=== PATIENT | female | born 2000 | race Hispanic/Latino ===

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

== ENCOUNTER 2021-08-20 21:39 | Emergency (ER) | payer SELFPAY ==
[2021-08-20] MEDS ORDERED: ONDANSETRON 4 MG/2 ML VIAL ONE (22:06)
[2021-08-20] MEDS ORDERED: NA CHLORIDE 0.9% 1,000 ML ONE (22:06)
[2021-08-20] MEDS ORDERED: IBUPROFEN 400 MG TAB ONE (23:39)
--- OUTSIDE RECORDS SUMMARY | 2021-08-21 00:26 | XMS REPORT | Continuity of Care Document ---
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 enlargement.GI TRACT: No dilation or bowel wall thickening. Normal appendix.PELVIS/BLADDER: The urinary bladder is decompressed, unremarkable. Theendometrial canal of the uterus contains ahypodense fluid, possibly a ablood product. A 2.4 cm corpus luteum is noted in the right ovary. The leftovary is unremarkable containing small follicles.VESSELS: Unremarkable.BONES AND SOFT TISSUES: Nosuspicious lytic or sclerotic bony lesions.IMPRESSIONNo CT evidence of traumatic chest injury.No CT evidence of traumatic abdominal injury.Scattered left lower lobe ground glass opacities, which can beseen in thesetting of atelectasis or nonspecific infectious/inflammatory processes. Inan appropriateclinical setting, this may represent COVID 19 pneumonia. Preliminary Report Dictated by Resident: Manuelito Correa MD., have reviewed this study and agree with the abovereport.[facility] [id number] 01:19:00 Test Item Value Reference Range Interpretation Comments TROPONIN I (test <0.012 See_Comment [Automated code = 1309349341) message] The system which generated this result transmitted reference range : <=0.034 ng/mL. The reference range was not used to interpr et this result as normal/abnormal . SILVERIO (test code = Equal or Less than SILVERIO) 0.034 ng/ml---Normal ?Note: Cardiac troponin begins to rise 3-4 hours after the onset of ischemia. Repeat in 4-6 hours if the sample was drawn within 3-4 hours of the onset of the symptom and found normal. Between 0.035 and 0.120 ng/mL--- Borderline. Questionable myocardial injury or necrosis ? ?Note: Serial measurement may be necessary to confirm or exclude the diagnosis of myocardial injury or necrosis; Clinical correlation (symptoms, EKGs, imaging studies, and others) required; Repeat in 4-6 hours if clinically indicated. ? Equal or Higher than 0.121 ng/mL---Abnormal. Myocardial Injury or Necrosis Likely ? Biotin has been reported to cause a negative bias, interpret results relative to patient's use of biotin. ? Lab Interpretation Normal (test code = 59891-2) [facility] SP[facility] WO [id number] 01:18:33 No acute osseous abnormality.EXAM: CT CERVICAL SPINE WO CONTRAST HISTORY: C-spine trauma, high clinical risk (NEXUS/CCR) TECHNIQUE: CT of cervical spine was performed without intravenous contrast.Sagittal and coronal reformats were generated. COMPARISON: None. FINDINGS: Vertebral bodies are normal in height and alignment. No acute fracture orsubluxation. Normal alignment of atlantoaxial joint and craniocervical junction. Disc spaces are preserved. The prevertebral soft tissues are unremarkable. The visualized lungs are clear. [facility], Radiant Results Inft User - 01/11/2020 8:19 PM CDTEXAM: CT CERVICAL SPINE WO CONTRASTHISTORY: C-spine trauma, high clinical risk (NEXUS/CCR) TECHNIQUE: CT of cervical spine was performed without intravenous contrast.Sagittal and coronal reformats were generated.COMPARISON: None.FINDINGS: Vertebral bodies are normal in height and alignment. No acute fracture orsubluxation.Normal alignment of atlantoaxial joint and craniocervical junction.Disc spaces are preserved.The prevertebral soft tissues are unremarkable.The visualized lungs are clear.IMPRESSIONNo acute osseous abnormality.[facility]. METABOLIC PANEL ([id number]) 2020-01-12 01:08:00 Test Item Value Reference Range Interpretation Comments NA (test code = 138 mmol/L 135-145 1401696553) K (test code = 3.5 mmol/L 3.5-5 7313168937) CL (test code = 105 mmol/L 98-108 1896999818) CO2 TOTAL (test code = 25 mmol/L 23-31 1740344142) AGAP (test code = 2-16 6619629303) BUN (test code = 8 mg/dL 7-23 9612143544) GLUCOSE (test code = 125 mg/dL 70-110 H 3215419514) CREATININE (test code = 0.70 mg/dL 0.5-1.04 7535775947) TOTAL BILI (test code = 0.3 mg/dL 0.1-1.1 9411219546) CALCIUM (test code = 8.8 mg/dL 8.6-10.6 2566213019) T PROTEIN (test code = 7.0 g/dL 6.3-8.2 1503640106) ALBUMIN (test code = 4.3 g/dL 3.5-5 5499984576) ALK PHOS (test code = 58 U/L 34-122 5632330956) ALTv (test code = 69 U/L 5-35 H 1742-6) AST(SGOT) (test code = 86 U/L 13-40 H 7040921459) eGFR Calculation mL/min/1.73m2 (Non-) (test code = 4548352142) eGFR Calculation mL/min/1.73m2 () (test code = 9622655878) SILVERIO (test code = SILVERIO) Association of Glomerular Filtration Rate (GFR) and Staging of Kidney Disease* + --+ --+ ------+| GFR (mL/min/1.73 m2) ?| With Kidney Damage ?| ?Without Kidney Damage+ --------+ --------+ +| ?>90 ?| ?Stage one ?| ? Normal ?+ ---+ ---+ -------+| ?60-89 ?| ?Stage two ?| ? Decreased GFR ? + --+ --+ ------+| ?30-59 ?| ?Stage three ?| ? Stage three ? + --+ --+ ------+| ?15-29 ?| ?Stage four ? | ? Stage four ?+ ---+ ---+ -------+| ?<15 (or dialysis) ? ?| ?Stage five ? | ? Stage five ?+ ---+ ---+ -------+ *Each stage assumes the associated GFR level has been in effect for at least three months. ?Stages 1 to 5, with or without kidney disease, indicate chronic kidney disease. Notes: Determination of stages one and two (with eGFR >59mL/min/1.73 m2) requires estimation of kidney damage for at least three months as defined by structural or functional abnormalities of the kidney, manifested by either:Pathological abnormalities or Markers of kidney damage (including abnormalities in the composition of the blood or urine or abnormalities in imaging tests). Lab Interpretation Abnormal (test code = 55336-0) [facility] [id number] 01:05:00 Test Item Value Reference Range Interpretation Comments APPEARANCE (test code = Cloudy Clear A 5275491249) COLOR (test code = Hailey Yellow A 9063531026) PH (test code = 4.8-8.0 7721173099) SP GRAVITY (test code = 1.003-1.030 8903985920) GLU U QUAL (test code = Normal Normal 8051632053) BLOOD (test code = Negative Negative 0474353723) KETONES (test code = 5 mg/dL Negative A 5669874438) PROTEIN (test code = 100 mg/dL Negative A 2887-8) UROBILIN (test code = 2.0 mg/dL Normal A 4233481979) BILIRUBIN (test code = Negative Negative 5581732769) NITRITE (test code = Negative Negative 3671801344) LEUK SHARLENE (test code = 25/uL Negative A 9212262908) RBC/HPF (test code = See_Comment H [Autom ated message] 5463016679) The system [employer] generated this result transmit rivka reference range : 0 - 3 HPF. The refe rence range was not u sed to interpret th is result as normal/abnormal . WBC/HPF (test code = See_Comment H [Autom ated message] 7867537130) The system [employer] generated this result transmit rivka reference range : 0 - 5 HPF. The refe rence range was not u sed to interpret th is result as normal/abnormal . BACTERIA (test code = Few Negative A 1048090424) MUCOUS (test code = Moderate Negative LPF A 9263933598) SQ EPITH (test code = HPF 5727070816) HYAL CAST (test code = See_Comment [Aut omated message] 9077159276) The system [employer] generated this result transmit rivka reference range : <=2 LPF. The refere nce range was not u sed to interpret th is result as normal/abnormal . Lab Interpretation (test Abnormal code = 10280-8) [facility] WITH [id number] 01:00:00 Test Item Value Reference Range Interpretation Comments WBC (test code = See_Comment [Automated 7490-2) message] The sy stem which generated this result transmitted reference range : 4.30 - 11.10 10*3/?L. The reference range was not used to interpret this result as normal/abnormal . RBC (test code = See_Comment [Automated 329-8) message] The sy stem which generated this result transmitted reference range : 3.93 - 5.25 10*6/?L. The reference range was not used to interpret this result as normal/abnormal . HGB (test code = 12.2 g/dL 11.6-15 718-7) HCT (test code = 36.7 % 35.7-45.2 4544-3) MCV (test code = 87.6 fL 80.6-95.5 787-2) MCH (test code = 29.1 pg 25.9-32.8 785-6) MCHC (test code = 33.2 g/dL 31.6-35.1 786-4) RDW-SD (test code = 46.9 fL 39-49.9 79963-3) RDW-CV (test code = 14.6 % 12-15.5 788-0) PLT (test code = See_Comment [Automated 777-3) message] The sy stem which generated this result transmitted reference range : 166 - 358 10*3/ ?L. The reference r joe was not used to interpret this result as normal/abnormal . MPV (test code = 12.3 fL 9.5-12.9 42758-6) NRBC/100 WBC (test See_Comment [Automat ed code = 7072708456) message] The system which generated this result transmitted reference range : 0.0 - 10.0 /100 WBCs. The refer ence range was not u sed to interpret th is result as normal/abnormal . NRBC x10^3 (test code <0.01 See_Comment [Auto mated = 0847927210) message] The s ystem which generated this result transmitted reference range : 10*3/?L. The reference range was not used to interpret this result as normal/abnormal . GRAN MAT (NEUT) % 69.8 % (test code = 770-8) IMM GRAN % (test code 1.60 % = 9436062275) LYMPH % (test code = 20.8 % 736-9) MONO % (test code = 5.7 % 5905-5) EOS % (test code = 1.5 % 713-8) BASO % (test code = 0.6 % 706-2) GRAN MAT x10^3(ANC) 7.41 10*3/uL 1.88-7.09 H (test code = 8234840063) IMM GRAN x10^3 (test 0.17 10*3/uL 0-0.06 H code = 1104054128) LYMPH x10^3 (test code 2.20 10*3/uL 1.32-3.29 = 731-0) MONO x10^3 (test code 0.60 10*3/uL 0.33-0.92 = 742-7) EOS x10^3 (test code = 0.16 10*3/uL 0.03-0.39 711-2) BASO x10^3 (test code 0.06 10*3/uL 0.01-0.07 = 704-7) Lab Interpretation Abnormal (test code = 11731-4) [facility] [id number] 00:37:00 Test Item Value Reference Range Interpretation Comments POCT PREG (test code = 1605) Negative On board controls acceptable with Present C Line (test code = 3574) POCT PREG LOT # (test code = 3575) [id number] POCT PREG TEST DATE (test 12/05/2020 code = 3576) Lab Interpretation (test code = Normal 95278-6) [facility]"
[2021-08-21] MEDS ORDERED: OSELTAMIVIR 75 MG CAP ONE (01:55)
[2021-08-21 06:05] LABS: ALT/SGPT 28 U/L (12-78); AST/SGOT 20 U/L (15-37); Albumin 4.1 g/dL (3.4-5.0); Alkaline Phosphatase 53 U/L (45-117); BUN Blood Urea Nitrogen 6 mg/dL (7-18); Bicarbonate 25 mmol/L (21-32); Bilirubin Total 0.5 mg/dL (0.2-1.0); Glucose Level 112 mg/dL (74-106); Lipase 81 U/L (73-393); Potassium 3.5 mmol/L (3.5-5.1); Protein, Total 7.5 g/dL (6.4-8.2); Sodium Level 140 mmol/L (136-145)
[2021-08-21 06:13] LABS: Absolute Lymphocytes (CBC) 0.3 K/uL (0.7-4.9); Hematocrit 36.7 % (36.0-45.0); Lymphocytes % 4.3 % (15.3-44.8); MPV 10.4 fL (7.6-11.3); RBC Red Blood Cell Count 4.11 M/uL (3.86-4.86)
[2021-08-21 06:16] LABS: SARS-COV-2 RT PCR NEGATIVE (NEGATIVE)
--- NOTE | 2021-08-21 12:09 | RAD REPORT ---
EXAM DESCRIPTION: CT - Abdomen Pelvis W Contrast - 08/21/2021 4:58 am CLINICAL HISTORY: 20 years, Female, PAIN/FEVER COMPARISON: None. TECHNIQUE: Contrast-enhanced images of the abdomen and pelvis were performed utilizing 5 mm slice th ickness at 5 mm interval reconstruction from the lung bases to the ischial tuberosities after the adm inistration IV contrast. In addition multiplanar reformats in the coronal and sagittal plane were obtained and reviewed. This exam was performed according to our departmental dose-optimization protocol, which includes auto mated exposure control, adjustment of the mA and/or kV according to patient size and/or use of iterat yessi reconstruction technique. FINDINGS: The lung bases demonstrate to better. The liver demonstrate decreased attenuation corresponding to fatty infiltration. Otherwise the liver, gallbladder, pancreas, spleen and adrenal glands demonstrate to be unremarkable, no focal lesions ar e noted. The kidneys demonstrate normal uptake of contrast media. No evidence for nephrolithiasis and/or hydro nephrosis. Grossly the unopacified stomach, small bowel and large bowel demonstrate to be within normal limits. There is no evidence for bowel dilatation/or free air. The appendix is normal. The urinary bladder demonstrate to be unremarkable. The uterus is unremarkable. There are normal bi lateral adnexal structures. The aorta demonstrate to be normal. There is no retroperitoneal lymph adenopathy. There is no evidence for ascites/or significant normal fluid collections. The rest of the soft tissue and bony structures are within normal limits. IMPRESSION: No acute intra-abdominal process. Normal appendix. Fatty infiltration of the liver. Electronically signed by: Diogenes Slater MD 08/21/2021 1:21 AM CDT Due to temporary technical issues with the PACS/Fluency reporting system, reports are being signed by the in house radiologists without review as a courtesy to insure prompt reporting. The interpreting radiologist is fully responsible for the content of the report.
--- NOTE | 2021-08-21 12:51 | EDPHYS ---
Physician Documentation [facility] Name: Judie Vega Age: 20 yrs Sex: Female : 2000 Arrival Date: 08/20/2021 Time: 21:44 Bed 16 Private MD: ED Physician Justino Quarles HPI: 08/20 21:50 This 20 yrs old Female presents to ER via Ambulatory with complaints of Fever, jmm Vomiting. 21:50 The patient reports fever, not measured (subjective). jmm 21:50 Onset: The symptoms/episode began/occurred gradually, today. Modifying factors: there jmm are no obvious modifying factors. Associated signs and symptoms: Pertinent positives: diarrhea, vomiting. The patient has not experienced similar symptoms in the past. This is a 20 year old female with no chronic medical conditions that presents to the ED with complaints of cough, vomiting, diarrhea, lower abdominal pain beginning this morning. Denies similar symptoms in the past. . Historical: - Allergies: 21:51 No Known Allergies; ab2 - PMHx: 21:51 None; ab2 - PSHx: 21:51 None; ab2 - Immunization history:: Adult Immunizations up to date. - Social history:: Smoking status: Patient denies any tobacco usage or history of. ROS: 21:50 Constitutional: Positive for body aches, chills. jmm 21:50 Respiratory: Positive for cough. 21:50 Abdomen/GI: Positive for abdominal pain, vomiting, diarrhea. 21:50 Back: Positive for flank pain, bilaterally. 21:50 All other systems are negative. Exam: 21:50 Constitutional: This is a well developed, well nourished patient who is awake, alert, jmm and in no acute distress. Head/Face: atraumatic. Eyes: EOMI, no conjunctival erythema appreciated ENT: Moist Mucus Membranes Neck: Trachea midline, Supple Chest/axilla: Normal chest wall appearance and motion. Cardiovascular: Regular rate and rhythm. No edema appreciated Respiratory: Normal respirations, no respiratory distress appreciated 21:50 Back: Normal ROM Skin: General appearance color normal MS/ Extremity: Moves all extremities, no obvious deformities appreciated, no edema noted to the lower extremities Neuro: Awake and alert Psych: Behavior is normal, Mood is normal, Patient is cooperative and pleasant 21:50 Abdomen/GI: Inspection: abdomen appears normal, Bowel sounds: normal, Palpation: soft, mild abdominal tenderness, in the right lower quadrant and left lower quadrant. Vital Signs: 21:50 BP 135 / 75; Pulse 98; Resp 18; Temp 98.8; Pulse Ox 100% on R/A; Weight 83.01 kg; ab2 Height 5 ft. 3 in. (160.02 cm); Pain 8/10; 23:38 BP 135 / 87; Pulse 99; Resp 18; Temp 100.1(O); Pulse Ox 98% ; ke1 08/21 00:08 Temp 99.4(O); ke1 02:02 BP 110 / 59; Pulse 90; Resp 18; Pulse Ox 99% on R/A; ke1 08/20 21:50 Body Mass Index 32.42 (83.01 kg, 160.02 cm) ab2 MDM: 08/20 21:50 Patient medically screened. [facility] 08/21 00:07 Data reviewed: vital signs, nurses notes. Counseling: I had a detailed discussion with [facility] the patient and/or guardian regarding:. 00:29 Transition of care: After a detail discussion of the patient's case, care is [facility] transferred to Justino Quarles MD. 01:38 Differential diagnosis: viral Infection, URI, gastroenteritis. Response to treatment: rn the patient's symptoms have markedly improved after treatment, and as a result, I will discharge patient. Special discussion: I discussed with the patient/guardian in detail that at this point there is no indication for admission to the hospital. It is understood, however, that if the symptoms persist or worsen the patient needs to return immediately for re-evaluation. ED course: CT no acute findings, flu +, will dc home with prn zofran and tamiflu.. 08/20 21:51 Order name: IV Saline Lock; Complete Time: 22:37 [facility] 08/20 21:51 Order name: Labs collected and sent; Complete Time: 22:37 [facility] 08/20 21:51 Order name: Urine Dipstick-Ancillary (obtain specimen); Complete Time: 22:49 [facility] 08/20 21:51 Order name: Urine Test (obtain specimen); Complete Time: 22:49 [facility] Administered Medications: 08/20 22:17 Drug: NS 0.9% 1000 ml Route: IV; Rate: 1 bolus; Site: left antecubital; 08/21 02:04 Follow up: IV Status: Completed infusion 08/20 22:17 Drug: Zofran (Ondansetron) 4 mg Route: IVP; Site: left antecubital; ke08/21 02:04 Follow up: Response: Marked relief of symptoms 08/20 23:40 Drug: Ibuprofen 400 mg Route: PO; 08/21 02:03 Follow up: Response: Marked relief of symptoms ke 02:02 Drug: Tamiflu (oseltamivir) 75 mg Route: PO; ke 02:03 Follow up: Response: Medication administered at discharge. ke Disposition: 02:22 Co-signature as Attending Physician, Justino Quarles MD. rn 03:22 I agree with the assessment and plan of care. rn Disposition Summary: 08/21/21 01:39 Discharge Ordered Location: Home rn Problem: new rn Symptoms: have improved rn Condition: Stable rn Diagnosis - Influenza due to identified novel influenza A virus rn - Nausea with vomiting, unspecified rn Followup: rn - With: Private Physician - When: As needed - Reason: Recheck today's complaints, Re-evaluation by your physician Discharge Instructions: - Discharge Summary Sheet rn - Nausea and Vomiting, Adult rn - Influenza, Adult, Pozz-as-Tjxn rn Forms: - Medication Reconciliation Form rn - Thank You Letter rn - Antibiotic charcoal kiln burner - Prescription Opioid Use rn Prescriptions: - ondansetron 4 mg Oral tablet,disintegrating - place 1 tablet by TRANSLINGUAL route every 6-8 hours As needed; 10 tablet; rn Refills: 0, Product Selection Permitted - Tamiflu 75 mg Oral Capsule - take 1 tablet by ORAL route every 12 hours for 5 days; 10 tablet; Refills: 0, rn Product Selection Permitted Signatures: Ney Valentine PA PA jmm Nieto, Roman, MD MD rn Bleininger, Alexis ab2 Ebrottie, Kouassi, RN RN ke1
--- NOTE | 2021-08-21 12:52 | ER ---
Nurse's Notes [facility] Name: Judie Vega Age: 20 yrs Sex: Female : 2000 Arrival Date: 08/20/2021 Time: 21:44 Bed 16 Private MD: Diagnosis: Influenza due to identified novel influenza A virus;Nausea with vomiting, unspecified Presentation: 08/20 21:50 Chief complaint: Patient states: "I have a fever, my whole body hurts, it hurts when I ab2 take a deep breath and I cant keep anything down." Pt states this started today. Coronavirus screen: Vaccine status: Patient reports being unvaccinated. Client denies travel out of the [place] in the last 14 days. Ebola Screen: Patient negative for fever greater than or equal to 101.5 degrees Fahrenheit, and additional compatible Ebola Virus Disease symptoms Patient denies exposure to infectious person. Patient denies travel to an Ebola-affected area in the 21 days before illness onset. No symptoms or risks identified at this time. Initial Sepsis Screen: Does the patient meet any 2 criteria? No. Patient's initial sepsis screen is negative. Does the patient have a suspected source of infection? No. Patient's initial sepsis screen is negative. Risk Assessment: Do you want to hurt yourself or someone else? Patient reports no desire to harm self or others. Onset of symptoms is unknown. 21:50 Method Of Arrival: Ambulatory ab2 21:50 Acuity: VICENTE 3 ab2 Triage Assessment: 21:52 General: Appears in no apparent distress. uncomfortable, Behavior is calm, cooperative, ab2 appropriate for age. Pain: Complains of pain in abdomen. Cardiovascular: No deficits noted. Denies chest pain, shortness of breath, Patient's skin is warm and dry. Respiratory: Airway is patent Respiratory effort is even, unlabored, Respiratory pattern is regular, symmetrical. GI: Reports lower abdominal pain, upper abdominal pain, intolerance of fluids, intolerance of food, nausea, vomiting. Historical: - Allergies: 21:51 No Known Allergies; ab2 - PMHx: 21:51 None; ab2 - PSHx: 21:51 None; ab2 - Immunization history:: Adult Immunizations up to date. - Social history:: Smoking status: Patient denies any tobacco usage or history of. Screenin/16 00:04 Abuse screen: Denies threats or abuse. Nutritional screening: No deficits noted. ke1 Tuberculosis screening: No symptoms or risk factors identified. Fall Risk None identified. Vital Signs: 08/20 21:50 BP 135 / 75; Pulse 98; Resp 18; Temp 98.8; Pulse Ox 100% on R/A; Weight 83.01 kg; ab2 Height 5 ft. 3 in. (160.02 cm); Pain 8/10; 23:38 BP 135 / 87; Pulse 99; Resp 18; Temp 100.1(O); Pulse Ox 98% ; ke1 08/21 00:08 Temp 99.4(O); ke1 02:02 BP 110 / 59; Pulse 90; Resp 18; Pulse Ox 99% on R/A; ke1 08/20 21:50 Body Mass Index 32.42 (83.01 kg, 160.02 cm) ab2 ED Course: 08/20 21:44 Patient arrived in ED. bp1 21:45 Ney Valentine PA is PHCP. jmm 21:45 Justino Quarles MD is Attending Physician. jmm 21:51 Triage completed. ab2 21:52 Arm band placed on right wrist. ab2 21:53 Toribio Hidalgo, RN is Primary Nurse. ke1 22:17 Inserted saline lock: 20 gauge in left antecubital area, using aseptic technique. ke08/21 00:04 Bed in low position. Call light in reach. ke1 00:04 No provider procedures requiring assistance completed. ke1 02:02 IV discontinued. ke1 Administered Medications: 08/20 22:17 Drug: NS 0.9% 1000 ml Route: IV; Rate: 1 bolus; Site: left antecubital; ke1 08/21 02:04 Follow up: IV Status: Completed infusion ke1 08/20 22:17 Drug: Zofran (Ondansetron) 4 mg Route: IVP; Site: left antecubital; ke08/21 02:04 Follow up: Response: Marked relief of symptoms ke08/20 23:40 Drug: Ibuprofen 400 mg Route: PO; ke1 08/21 02:03 Follow up: Response: Marked relief of symptoms ke1 02:02 Drug: Tamiflu (oseltamivir) 75 mg Route: PO; ke1 02:03 Follow up: Response: Medication administered at discharge. ke1 Outcome: 01:39 Discharge ordered by . rn 02:02 Discharged to home ambulatory. ke1 02:02 Condition: good 02:02 Discharge instructions given to patient. 02:04 Patient left the ED. ke1 Signatures: Ney Valentine PA PA jmm Nieto, Roman, MD MD rn [place]ia[place], Brittany bp1 Bleininger, Alexis ab2 Ebrottie, Kouassi, RN RN ke1
[2021-08-21 12:57] VITALS: TEMP 99.4
[2021-08-21 12:59] VITALS: BP 110/59; O2SAT 99
== END 2021-08-21 02:04 | disposition home or self-care (01) ==
LOC: ER 21:39
DX: J10.1 Influenza due to other identified influenza virus with other respiratory manifestations (principal); R11.2 Nausea with vomiting, unspecified; Z20.822 Contact with and (suspected) exposure to COVID-19
CPT/HCPCS: 0240U; 36415; 74177; 80053; 83690; 85025; 96361; 96374; 99283; J2405; J7030; Q9967